=== PATIENT | female | born 1955 | race Caucasian/White ===

== ENCOUNTER 2018-07-12 09:37 | Day surgery (SDC) | payer BC ==
[~2018-07-12] VITALS: Ht 154.9 cm; Wt 73.8 kg
[~2018-07-12 09:37] MED LIST: ALBU90I INH; ALBU90OI; ALBU90OI INH; LEVSOD50 PO; LOSA25; QVAR REDIHALE10.6 G1 INH; QVAR7.3 G1
[2018-07-12] MEDS ORDERED: BREO ELLIPTA 11 EACH INH (10:07)
[2018-07-12] MEDS ORDERED: LOSA25 PO (10:07)
--- NOTE | 2018-07-12 10:11 | NUR ---
07/12/18 [place]1 Bola Szymanski CALL LIGHT WITHIN REACH.
--- NOTE | 2018-07-12 12:28 | NUR ---
07/12/18 1228 Camryn Napier 1200 PT. VERBALIZES NAUSEA BETTER. PT. DENIES PAIN. RIGHT HAND UP ELELVATED UP ON PILLOW WITH ICE PACK ON. AT HER SIDE. INSTRUCTED CHARGE ACCOUNT CLERK LIGHT. PT. WITH WATER & CRACKERS AT HER SIDE.
== END 2018-07-12 13:01 | disposition home or self-care (01) ==
LOC: ORSCSDS 09:37
PROVIDERS: Orthopaedic Surgery
PROC: 01N54ZZ Release Median Nerve, Percutaneous Endoscopic Approach (ICD-10-PCS; principal; 2018-07-12 11:00)
DX: G56.01 Carpal tunnel syndrome, right upper limb (principal); I10 Essential (primary) hypertension; J45.909 Unspecified asthma, uncomplicated; E03.9 Hypothyroidism, unspecified; Z79.899 Other long term (current) drug therapy
CPT/HCPCS: J0690; J2250; J2405; J2765; J3010; J7120

== ENCOUNTER 2019-01-24 13:01 | Day surgery (SDC) | payer BC ==
[~2019-01-24] VITALS: Ht 154.9 cm; Wt 75.6 kg
[~2019-01-24 13:01] MED LIST changes: +BREO ELLIPTA 11 EACH INH; +LOSA25 PO
--- NOTE | 2019-01-24 14:39 | NUR ---
01/24/19 1439 Cynthia Ross SITE CHECK DONE AT 1437, TIME OUT DONE AT 1437. DR MONCADA INJECTED AT 1439. PT ON O2 MONITOR, SATS ARE 94% ON ROOM AIR, PULSE 70.
== END 2019-01-24 15:44 | disposition home or self-care (01) ==
LOC: ORSCSDS 13:01
PROVIDERS: Orthopaedic Surgery
PROC: 01N54ZZ Release Median Nerve, Percutaneous Endoscopic Approach (ICD-10-PCS; principal; 2019-01-24 15:00)
DX: G56.02 Carpal tunnel syndrome, left upper limb (principal); J45.909 Unspecified asthma, uncomplicated; I10 Essential (primary) hypertension; E07.9 Disorder of thyroid, unspecified; Z79.899 Other long term (current) drug therapy
CPT/HCPCS: J0690; J2250; J7120

== ENCOUNTER 2019-07-19 12:39 | Emergency (ER) | payer OTHER, BC ==
[~2019-07-19] VITALS: Ht 154.9 cm; Wt 74.8 kg
== END 2019-07-19 13:52 | disposition home or self-care (01) ==
LOC: ER 12:39
DX: S49.91XA Unspecified injury of right shoulder and upper arm, initial encounter (principal); I10 Essential (primary) hypertension; E03.9 Hypothyroidism, unspecified; J45.909 Unspecified asthma, uncomplicated; Z88.5 Allergy status to narcotic agent; Z79.899 Other long term (current) drug therapy; W01.0XXA Fall on same level from slipping, tripping and stumbling without subsequent striking against object, initial encounter
CPT/HCPCS: 73030; 99283-25

== ENCOUNTER → 2024-04-16 | Outpatient (CLI) | payer MEDICARE, BC | LOC: LAB 17:23 → LAB SHORT 17:23 | DX: N39.0 Urinary tract infection, site not specified (principal) | CPT/HCPCS: 87077; 87086; 87186 ==

== ENCOUNTER 2024-05-23 04:45 | Emergency (ER) | payer MEDICARE ==
[~2024-05-23] VITALS: Ht 154.9 cm; Wt 79.4 kg
[2024-05-23 05:13] LABS: BASOPHILS ABSOLUTE AUTO 0.07 K/mm3 (0.00-0.23); BASOPHILS PERCENT AUTO 1 % (0-2); EOSINOPHILS ABSOLUTE AUTO 0.49 K/mm3 (0.00-0.68); EOSINOPHILS PERCENT AUTO 6 % (0-6); Hematocrit 40.5 % (33.0-51.0); Hemoglobin 13.3 g/dL (11.5-16.0); IMMATURE GRAN ABSOLUTE AUTO 0.05 K/mm3 (0.00-0.10); IMMATURE GRAN PERCENT AUTO 1 % (0-1); LYMPHOCYTES ABSOLUTE AUTO 3.06 K/mm3 (0.84-5.20); LYMPHOCYTES PERCENT AUTO 38 % (21-46); MONOCYTES ABSOLUTE AUTO 0.74 K/mm3 (0.16-1.47); MONOCYTES PERCENT AUTO 9 % (4-13); Mean Corpuscular HGB 30.1 pg (26.0-34.0); Mean Corpuscular HGB Conc 32.8 g/dL (31.5-36.5); Mean Corpuscular Volume 92 fL (80-100); Mean Platelet Volume 9.7 fL (9.1-12.4); NEUTROPHILS ABSOLUTE AUTO 3.73 K/mm3 (1.96-9.15); NEUTROPHILS PERCENT AUTO 46 % (41-73); Platelet Count 287 K/mm3 (150-400); RDW Coefficient Variation 13.6 % (11.7-14.2); RDW Standard Deviation 46.5 fL (35.1-46.3); Red Blood Cell Count 4.42 M/mm3 (3.80-5.20); White Blood Cell Count 8.14 K/mm3 (4.00-11.30)
[2024-05-23 05:35] LABS: Albumin, Blood 3.4 g/dL (3.4-5.0); Bilirubin, Total 0.3 mg/dL (0.1-1.0); Bun/Creatinine Ratio 20.8 (12.0-20.0); Calcium, Blood 8.2 mg/dL (8.5-10.1); Creatinine, Blood 1.06 mg/dL (0.40-1.00); Globulin, Blood 3.4 g/dL (2.2-4.0); Potassium, Blood 3.8 mmol/L (3.5-5.5); Total Protein, Blood 6.8 g/dL (6.4-8.2)
[2024-05-23] MEDS ORDERED: Mag Hydrox/AL Hydrox/Simeth 30 ML UDC PO ONE (06:05)
[2024-05-23] MEDS ORDERED: Famotidine 10 MG/ML 2ML Vial IV ONE (06:05)
[2024-05-23 07:00] VITALS: BP 144/71
[2024-05-23] MEDS ORDERED: FAMO20 PO (07:16)
[2024-05-23] MEDS ORDERED: ALMACONE SUSPE355 ML PO (07:16)
== END 2024-05-23 07:26 | disposition home or self-care (01) ==
LOC: ER 04:45
PROVIDERS: Emergency Medicine
DX: R07.89 Other chest pain (principal); Z88.5 Allergy status to narcotic agent; Z79.899 Other long term (current) drug therapy
CPT/HCPCS: 71046; 80053; 83690; 84484; 85025; 93005; 93010; 99285-25; A9270